=== PATIENT | female | born 1950 ===

== ENCOUNTER 2023-07-10 14:23 | Outpatient (CLI) | payer OTHER | END 2023-07-10 14:39 | disposition home or self-care (01) | LOC: RAD 14:23 | PROVIDERS: ATTEND Internal Medicine Cardiovascular Disease | DX: M12.9 Arthropathy, unspecified (principal) ==

== ENCOUNTER 2023-07-18 10:01 | Outpatient (CLI) | payer OTHER ==
[2023-07-18 12:03] LABS: CREATININE SERUM 0.8 mg/dL (0.55-1.02)
== END 2023-07-18 12:03 | disposition home or self-care (01) ==
LOC: LAB 10:01
DX: I10 Essential (primary) hypertension (principal)

== ENCOUNTER 2023-07-18 12:57 | Outpatient (CLI) | payer OTHER | END 2023-07-18 13:03 | disposition home or self-care (01) | LOC: MRI 12:57 | PROVIDERS: ATTEND General Practice | DX: M25.561 Pain in right knee (principal); M25.571 Pain in right ankle and joints of right foot | CPT/HCPCS: 73723; Q9965; 73722 ==